=== PATIENT | female | born 1970 | race Caucasian/White ===

== ENCOUNTER → 2017-07-25 | Outpatient (CLI) | payer OTHER ==
[~2017-07-25] MED LIST: ASCO1CAP2 PO; ESCI10TA PO; HYDR10TA4 PO; MULT-658 PO
[2017-07-25 13:20] LABS: BASOPHILS # (AUTO) 0.05 x10^3/uL (0-0.1); BASOPHILS % (AUTO) 1 % (0-1); EOSINOPHILS # (AUTO) 0.09 x10^3/uL (0-0.4); EOSINOPHILS % (AUTO) 1 % (1-7); LYMPHOCYTES # (AUTO) 2.19 x10^3/uL (1-3.4); LYMPHOCYTES % (AUTO) 30 % (22-44); MD NO; MEAN CORPUSCULAR HEMOGLOBIN 27.2 pg (27.0-34.8); MEAN CORPUSCULAR VOLUME 82.4 fL (80-100); MEAN PLATELET VOLUME 7.4 fL (7.4-10.4); MONOCYTES # (AUTO) 0.62 x10^3/uL (0.2-0.8); MONOCYTES % (AUTO) 9 % (2-9); NEUTROPHILS # (AUTO) 4.25 x10^3/uL (1.8-6.8); NEUTROPHILS % (AUTO) 59 % (42-75); PLATELET COUNT 339 x10^3/uL (130-400); RED BLOOD COUNT 4.31 x10^6/uL (3.82-5.3); RED CELL DISTRIBUTION WIDTH 14.4 % (9.6-15.2)
[2017-07-25 13:33] LABS: ALBUMIN 3.9 g/dL (3.4-5.0); ANION GAP 5 mmol/L (5-15); CALCIUM 8.4 mg/dL (8.5-10.1); CHLORIDE 108 mmol/L (98-107)
[2017-07-25 13:36] LABS: ALANINE AMINOTRANSFERASE 15 U/L (12-78); ALKALINE PHOSPHATASE 58 U/L (45-117); BILIRUBIN,TOTAL 0.4 mg/dL (0.2-1.0); CREATININE 0.84 mg/dL (0.55-1.02); TOTAL PROTEIN 7.5 g/dL (6.4-8.2)
== END | disposition home or self-care (01) ==
LOC: STAR 12:19
PROVIDERS: ATTEND Specialist
DX: Z01.818 Encounter for other preprocedural examination (principal); D25.9 Leiomyoma of uterus, unspecified
CPT/HCPCS: 36415; 80053; 85025; 93005

== ENCOUNTER 2017-08-09 12:30 | Inpatient (IN) | payer OTHER ==
[~2017-08-09] VITALS: Ht 167.6 cm; Wt 83.6 kg
[~2017-08-09 12:30] MED LIST changes: +DEXAMETHASONE 4 MG/ML, 1ML ONE; +FENTANYL PF 250 MCG/5ML ONE; +KETOROLAC 30 MG/1 ML ONE; +MIDAZOLAM 1 MG/ML, 2ML ONE; +ONDANSETRON 2MG/ML, 2ML ONE; +ROCURONIUM 10 MG/ML,10ML ONE
[2017-08-09] MEDS ORDERED: NEOSTIGMINE 1 MG/ML, 10ML ONE (12:31)
[2017-08-09] MEDS ORDERED: PROPOFOL 10 MG/ML, 20ML ONE (12:31)
[2017-08-09] MEDS ORDERED: GLYCOPYRROLATE 0.4 MG/2 ML, 2ML ONE (12:31)
[2017-08-09] MEDS ORDERED: CEFAZOLIN 1,000 MG ONE ×2 (12:32)
[2017-08-09] MEDS ORDERED: SODIUM CHLORIDE 0.9% PF 10ML ONE (12:32)
[2017-08-09] MEDS ORDERED: LIDOCAINE-MPF 1%, 2ML ONE (13:02)
[2017-08-09 13:11] LABS: HCG UR SG 1.022 (1.003-1.030)
[2017-08-09] MEDS ORDERED: LACTATED RINGERS 1,000 ML IV SCH (13:19)
[2017-08-09] MEDS ORDERED: LIDOCAINE 1%, 2ML SQ PRN (13:30)
[2017-08-09] MEDS ORDERED: BUPIVACAINE/PF 0.5% ONE (14:59)
[2017-08-09] MEDS ORDERED: EPINEPHRINE 1 MG/ML, 1ML ONE (14:59)
[2017-08-09] MEDS ORDERED: LABETALOL 5MG/ML, 20ML IV PRN (15:30)
[2017-08-09] MEDS ORDERED: MEPERIDINE/PF 25MG/0.5ML IVPush PRN (15:30)
[2017-08-09] MEDS ORDERED: PROMETHAZINE 12.5 MG SUPP PR PRN (15:30)
[2017-08-09] MEDS ORDERED: hydrALAzine 20 MG/ML, 1ML IV PRN (15:30)
[2017-08-09] MEDS ORDERED: morphine SULFATE 10 MG/ML, 1ML IV PRN (15:30)
[2017-08-09] MEDS ORDERED: ACETAMINOPHEN 325 MG TABLET PO PRN (15:30)
[2017-08-09] MEDS ORDERED: PROMETHAZINE 25 MG/ML, 1ML IV PRN (15:30)
[2017-08-09] MEDS ORDERED: HYDROmorphone 1 MG/ML, 1ML IV PRN (15:30)
[2017-08-09] MEDS ORDERED: ONDANSETRON 2MG/ML, 2ML IVPush PRN (15:30)
[2017-08-09] MEDS ORDERED: OXYcodone 5 MG/5 ML ORAL.SOL UDC PO PRN (15:30)
[2017-08-09] MEDS ORDERED: FENTANYL PF 250 MCG/5ML ONE (15:49)
[2017-08-09] MEDS ORDERED: FENTANYL PF 100 MCG/2ML ONE (17:26)
[2017-08-09] MEDS ORDERED: ACETAMINOPHEN 650 MG/20.3 ML UDC ONE (17:26)
[2017-08-09] MEDS ORDERED: OXYcodone 5 MG/5 ML ORAL.SOL UDC ONE (17:27)
[2017-08-09] MEDS: FENTANYL PF 100 MCG/2ML IV PRN ×2 (17:29→17:37)
[2017-08-09] MEDS ORDERED: MEPERIDINE/PF 50 MG/ML ONE (17:58)
[2017-08-09 19:30] VITALS: BP 115/63
[2017-08-09] MEDS ORDERED: MEPERIDINE/PF 100 MG/ML IM PRN (19:30)
[2017-08-09] MEDS ORDERED: HYDROmorphone 2 MG/ML, 1ML IV PRN (19:30)
[2017-08-09] MEDS ORDERED: ONDANSETRON 2MG/ML, 2ML IV PRN (19:30)
[2017-08-09] MEDS: OXYcodone 5 MG/5 ML ORAL.SOL UDC PO PRN (19:46)
[2017-08-09] MEDS: POTASSIUM CHLORIDE 20 MEQ in D5%-LACTATED RINGERS 1,000 ML IV SCH (21:58)
[2017-08-09] MEDS: KETOROLAC 30 MG/1 ML IV SCH (22:32)
[2017-08-10] MEDS: OXYcodone 5 MG/5 ML ORAL.SOL UDC PO PRN ×3 (00:04→12:29)
[2017-08-10 00:10] VITALS: BP 100/57
[2017-08-10 04:17] VITALS: BP 94/56
[2017-08-10] MEDS: POTASSIUM CHLORIDE 20 MEQ in D5%-LACTATED RINGERS 1,000 ML IV SCH (04:23)
[2017-08-10] MEDS: KETOROLAC 30 MG/1 ML IV SCH ×2 (04:28→10:46)
[2017-08-10 09:05] VITALS: BP 111/60
[2017-08-10 14:24] VITALS: BP 122/68
[2017-08-10] MEDS ORDERED: OXYC-307 PO (14:33)
[2017-08-10] MEDS ORDERED: ESTR1TAB15 PO (14:34)
[2017-08-10] MEDS ORDERED: IBUP-1222 PO (14:34)
[2017-08-10] MEDS ORDERED: IBUPROFEN 600 MG TABLET PO SCH (21:00)
== END 2017-08-10 14:47 | disposition home or self-care (01) | DRG 743 ==
LOC: OUT 12:30 → EDSTATUS 14:30 → 4NOR 18:58 → OUT 19:10 → 4NOR 19:10 → DCLOUNGE 08-10 14:30
PROVIDERS: ADMIT Specialist; ATTEND Specialist
PROC: 0UT20ZZ Resection of Bilateral Ovaries, Open Approach (ICD-10-PCS; 2017-08-09)
PROC: 0UT70ZZ Resection of Bilateral Fallopian Tubes, Open Approach (ICD-10-PCS; 2017-08-09)
PROC: 0UT90ZL Resection of Uterus, Supracervical, Open Approach (ICD-10-PCS; principal; 2017-08-09 14:30)
DX: D25.9 Leiomyoma of uterus, unspecified (principal); N83.201 Unspecified ovarian cyst, right side; N84.1 Polyp of cervix uteri; N92.0 Excessive and frequent menstruation with regular cycle; Z80.3 Family history of malignant neoplasm of breast; Z81.8 Family history of other mental and behavioral disorders; Z87.891 Personal history of nicotine dependence; Z88.0 Allergy status to penicillin
CPT/HCPCS: 36415; 81025; 85014; 85018; 86850; 86900; 88307; J0171; J0690; J1100; J1885; J2175; J2250; J2405; J2704; J2710; J3010; J3480; J3490; J7120; J7121